=== PATIENT | male | born 1955 | race Caucasian/White ===

== ENCOUNTER → 2016-09-12 | Outpatient (CLI) | payer BC ==
--- NOTE | 2016-09-13 13:55 | PCVCIMAG ---
APPROVED REPORT Exam: Nuclear Stress Test Indication: CAD Stress Nurse: Arianne King RN, Tracy Mckee RN IN Tech:LUC Monroe Ht: 6 ft 0 in Wt: 245 lbs BSA: 2.32 m2 HR: 81 bpm BP: 110/75 mmHg BMI: 33.2 Rhythm: SR Medical History Medical History: Hyperlipidemia, Smoking - Current Medications: Simvastatin Allergies: No known drug allergies Cardiac Risk Factors: Age Pretest Chest Pain Characteristics: No chest pain Exercise History: Physically active NM EXAM: Myocardial Perfusion REST/STRESS Imaging Protocol: Rest Tc-99m/Stress Tc-99m 1 day Resting Data Rest SPECT myocardial perfusion imaging was performed in supine position 45 minutes following the intravenous injection of 16.6 mCi of Tc-99m Sestamibi. Time of rest injection: 939 Date: 09/12/2016 Exercise Stress At peak stress, the patient was injected intravenously with 44.5mCi of Tc-99m Sestamibi. Time of stress injection: 1119 Date: 09/12/2016 Administration Route: IV Administration Site: Right Arm Gated Stress SPECT was performed 45 minutes after stress injection. The images were gated to evaluate regional wall motion and calculate left ventricular ejection fraction. Study Data Post stress, the left ventricular ejection was 58%.. SSS: 0 SRS: 0 SDS: 0 TID = 0.81. Perfusion There is a medium area of moderately reduced uptake in the entire segment of the inferior wall which is seen on the stress images as well as the resting images. This area thickens and moves normally and is most consistent with attenuation artifact. Nuclear Conclusion 1. LOW RISK STUDY Interpreted by: Avila Oropeza MD Electronically Approved: 09/13/2016 13:54:04 Stress Test Details Stress Test: Exercise stress testing was performed using a Amadou protocol. HR Resting HR: 81 bpmMax Heart Rate (APMHR): 160 bpm Max HR Achieved: 171 bpmTarget HR (85% APMHR): 136 bpm % of APMHR: 106 Recovery HR: 93 bpm BP Resting BP: 110/75 mmHg Max BP: 170/80 mmHg Recovery BP: 146/71 mmHg ECG Resting ECG: Sinus Rhythm Stress ECG: Sinus Tachycardia Recovery ECG: Sinus Rhythm Clinical Reason for Termination: Dyspnea, Fatigue Stress Symptoms: Dyspnea, Leg Fatigue Exercise duration: 10 min 0 sec Exercise capacity: 13.40 METs Symptoms resolved during recovery. Stress ECG Conclusion 1. SUBJECTIVELY NEGATIVE FOR ISCHEMIA 2. ELECTROCARDIOGRAPHICALLY NEGATIVE FOR ISCHEMIA 3. ADEQUATE FUNCTIONAL CAPACITY <Conclusion> 1. SUBJECTIVELY NEGATIVE FOR ISCHEMIA 2. ELECTROCARDIOGRAPHICALLY NEGATIVE FOR ISCHEMIA 3. ADEQUATE FUNCTIONAL CAPACITY
== END | disposition home or self-care (01) ==
LOC: PCVCIMAG 09:19
PROVIDERS: ATTEND Internal Medicine
DX: I25.10 Atherosclerotic heart disease of native coronary artery without angina pectoris (principal); E78.5 Hyperlipidemia, unspecified; F17.200 Nicotine dependence, unspecified, uncomplicated; R00.0 Tachycardia, unspecified
CPT/HCPCS: 78452; 93017; A9500